=== PATIENT | male | born 1965 | race American Indian/Alaskan Native ===

== ENCOUNTER 2016-11-07 08:22 | Emergency (ER) | payer SELFPAY ==
[2016-11-07 09:13] LABS: Basophils % (Auto) 0.7 % (0.0-1.8); Eosinophils % (Auto) 3.7 % (0.0-4.3); Hemoglobin 15.4 gm/dl (11.8-15.2); Mean Corpuscular HGB Conc 33 % (32-34); Mean Corpuscular Hemoglobin 30 pg (28-32); Mean Corpuscular Volume 90 fl (84-94); Platelet Count 246 K/mm3 (140-440); Red Blood Count 5.21 M/mm3 (3.65-5.03); Red Cell Distribution Width 14.2 % (13.2-15.2); White Blood Count 8.3 K/mm3 (4.5-11.0)
[2016-11-07 09:29] LABS: Alanine Aminotransferase 26 units/L (7-56); Albumin 4.3 g/dL (3.9-5); Albumin/Globulin Ratio 1.8 %; Alkaline Phosphatase 84 units/L (35-129); Anion Gap 15 mmol/L; Bilirubin,Total 0.3 mg/dL (0.1-1.2); Blood Urea Nitrogen 18 mg/dL (9-20); Calcium 9.2 mg/dL (8.4-10.2); Carbon Dioxide 27 mmol/L (22-30); Chloride 103.5 mmol/L (98-107); Glucose 120 mg/dL (75-100); Lipase 82 units/L (13-60); Potassium 3.8 mmol/L (3.6-5.0); Sodium 142 mmol/L (137-145); Total Protein 6.7 g/dL (6.3-8.2)
[2016-11-07 09:36] LABS: Bilirubin,Urine NEG (Negative); Blood,Urine NEG (Negative); Ketones,Urine NEG (Negative); Leukocyte Esterase,Urine NEG (Negative); Mucus,Urine FEW /HPF; Nitrite,Urine NEG (Negative); Urobilinogen,Urine < 2.0 mg/dL (<2.0)
--- NOTE | 2016-11-07 13:50 | Emergency Department Report ---
ED General Adult HPI - General Chief complaint: Abdominal Pain Stated complaint: ABD PAIN Time Seen by Provider: 11/07/16 13:34 Source: patient Mode of arrival: Ambulatory Limitations: No Limitations - History of Present Illness Initial comments: Patient has a variety of nonacute problems. He has no primary care provider. He states that he has been occasionally coughing out a minimal amount of blood for the last 4 months. The patient tells me he "smokes but not cigarettes". He has not gone to a primary care provider. He states that he spit up some blood yesterday but thought it was from the stomach. He is not complaining of abdominal pain or chest pain at this time. He has not had any significant pain. He is resting comfortably and largely texturing on his phone. He is also concerned about an apparent mass in his right upper clavicular area which has been there for months if not years. -: month(s) Severity scale (0 -10): 0 Consistency: now resolved Improves with: none Worsens with: none Associated Symptoms: denies other symptoms Treatments Prior to Arrival: none - Related Data Home Medications Medication Instructions Recorded Confirmed Last Taken Lisinopril/Hydrochlorothiazide 1 tab PO QDAY 12/19/13 11/07/16 12/19/13 06:20 [Zestoretic 20-25 mg] 20 Previous Rx's Medication Instructions Recorded Last Taken Type Lansoprazole [Prevacid] 15 mg PO BID #30 cap 11/07/16 Unknown Rx Lisinopril/Hydrochlorothiazide 1 tab PO QDAY #30 tablet 11/07/16 Unknown Rx [Zestoretic 10-12.5 mg] Ondansetron [Zofran Odt] 4 mg PO Q6H PRN #7 tab.rapdis 11/07/16 Unknown Rx Allergies Allergy/AdvReac Type Severity Reaction Status Date / Time No Known Allergies Allergy Verified 07/11/14 22:11 ED Review of Systems ROS: Stated complaint: ABD PAIN Other details as noted in HPI Constitutional: denies: chills, fever Eyes: denies: eye pain, eye discharge, vision change ENT: denies: ear pain, throat pain Respiratory: see HPI. denies: cough, shortness of breath, wheezing Cardiovascular: denies: chest pain, palpitations Endocrine: no symptoms reported Gastrointestinal: as per HPI. denies: abdominal pain, nausea, diarrhea Genitourinary: denies: urgency, dysuria Musculoskeletal: denies: back pain, joint swelling, arthralgia Skin: denies: rash, lesions Neurological: denies: headache, weakness, paresthesias Psychiatric: denies: anxiety, depression Hematological/Lymphatic: denies: easy bleeding, easy bruising ED Past Medical Hx - Past Medical History Previous Medical History?: Yes Hx Hypertension: Yes (not taking any medications) - Surgical History Past Surgical History?: No - Social History Smoking Status: Never Smoker Substance Use Type: Alcohol, Marijuana - Medications Home Medications: Home Medications Medication Instructions Recorded Confirmed Last Taken Type Lisinopril/Hydrochlorothiazide 1 tab PO QDAY 12/19/13 11/07/16 12/19/13 06:20 History [Zestoretic 20-25 mg] 20 Lansoprazole [Prevacid] 15 mg PO BID #30 cap 11/07/16 Unknown Rx Lisinopril/Hydrochlorothiazide 1 tab PO QDAY #30 tablet 11/07/16 Unknown Rx [Zestoretic 10-12.5 mg] Ondansetron [Zofran Odt] 4 mg PO Q6H PRN #7 tab.rapdis 11/07/16 Unknown Rx ED Physical Exam - General Limitations: No Limitations General appearance: alert, in no apparent distress - Head Head exam: Present: atraumatic, normocephalic - Eye Eye exam: Present: normal appearance, PERRL, EOMI. Absent: scleral icterus - ENT ENT exam: Present: mucous membranes moist - Neck Neck exam: Present: normal inspection - Respiratory Respiratory exam: Present: normal lung sounds bilaterally. Absent: respiratory distress - Cardiovascular Cardiovascular Exam: Present: regular rate, normal rhythm. Absent: systolic murmur, diastolic murmur, rubs, gallop - GI/Abdominal GI/Abdominal exam: Present: soft, normal bowel sounds. Absent: distended, tenderness, guarding, rebound, rigid - Rectal Rectal exam: Present: deferred - Extremities Exam Extremities exam: Present: normal inspection. Absent: tenderness, joint swelling, calf tenderness - Back Exam Back exam: Present: normal inspection - Neurological Exam Neurological exam: Present: alert, oriented X3, CN II-XII intact. Absent: motor sensory deficit - Psychiatric Psychiatric exam: Present: normal affect, normal mood - Skin Skin exam: Present: warm, dry, intact, normal color, other (patient has a subcutaneous apparent Fany in the right supraclavicular area. It is probably about 6-10 cm in diameter ). Absent: rash ED Course Vital Signs 11/07/16 11/07/16 11/07/16 08:42 12:51 12:56 Temperature 97.9 F 98 F Pulse Rate 73 68 Respiratory 18 18 18 Rate Blood Pressure 153/113 Blood Pressure 146/104 [Left] O2 Sat by Pulse 99 98 98 Oximetry ED Medical Decision Making - Lab Data Result diagrams: 11/07/16 08:55 11/07/16 08:55 Laboratory Results - last 24 hr 11/07/16 11/07/16 11/07/16 08:55 08:55 09:20 WBC 8.3 RBC 5.21 H Hgb 15.4 H Hct 47.0 H MCV 90 MCH 30 MCHC 33 RDW 14.2 Plt Count 246 Lymph % (Auto) 36.2 H Pike % (Auto) 6.1 Eos % (Auto) 3.7 Baso % (Auto) 0.7 Lymph # 3.0 Pike # 0.5 Eos # 0.3 Baso # 0.1 Seg Neutrophils % 53.3 Seg Neutrophils # 4.4 Sodium 142 Potassium 3.8 Chloride 103.5 Carbon Dioxide 27 Anion Gap 15 BUN 18 Creatinine 1.2 Estimated GFR > 60 BUN/Creatinine Ratio 15.00 Glucose 120 H Calcium 9.2 Total Bilirubin 0.3 AST 22 ALT 26 Alkaline Phosphatase 84 Total Protein 6.7 Albumin 4.3 Albumin/Globulin Ratio 1.8 Lipase 82 H Urine Color Yellow Urine Turbidity Clear Urine pH 5.0 Ur Specific [place] 1.019 Urine Protein 100 mg/dl Urine Glucose (UA) Neg Urine Ketones Neg Urine Blood Neg Urine Nitrite Neg Urine Bilirubin Neg Urine Urobilinogen < 2.0 Ur Leukocyte Esterase Neg Urine WBC (Auto) 1.0 Urine RBC (Auto) 2.0 Urine Mucus Few - Radiology Data Radiology results: report reviewed interpreted by me: Chest x-ray no acute process. Critical care attestation.: If time is entered above; I have spent that time in minutes in the direct care of this critically ill patient, excluding procedure time. ED Disposition Clinical Impression: Gastritis Qualifiers: Gastritis type: unspecified gastritis Chronicity: acute Gastritis bleeding: with bleeding Qualified Code(s): K29.01 - Acute gastritis with bleeding Hypertension Qualifiers: Hypertension type: essential hypertension Qualified Code(s): I10 - Essential ( primary) hypertension Disposition: DISCHARGED TO HOME OR SELFCARE Is pt being admited?: No Does the pt Need Aspirin: No Condition: Stable Instructions: Hypertension (ED), Acute Hemoptysis (ED), Gastritis (ED) Additional Instructions: Return any acute change or problem. You have several complaints and hypertension that require follow-up. I've given you some referrals. Rx as directed. Prescriptions: Lansoprazole [Prevacid] 15 mg PO BID #30 cap Lisinopril/Hydrochlorothiazide [Zestoretic 10-12.5 mg] 1 tab PO QDAY #30 tablet Ondansetron [Zofran Odt] 4 mg PO Q6H PRN #7 tab.rapdis PRN Reason: nausea Referrals: PRIMARY CARE, [Primary Care Provider] - 3-5 Days Time of Disposition: 15:52
--- NOTE | 2016-11-07 14:35 | XRay Report ---
CHEST 2 VIEWS INDICATION: Hemoptysis. COMPARISON: 07/11/2014. FINDINGS: PA and lateral chest radiographs demonstrates slight exaggerated cardiomediastinal silhouette. Clear lungs. Intact bones. CONCLUSION: No acute disease in the chest. Thank you for the opportunity to participate in this patient's care.
[2016-11-07 16:33] VITALS: BP 149/104
== END 2016-11-07 16:36 | disposition home or self-care (01) ==
LOC: ED 08:22
DX: K29.01 Acute gastritis with bleeding (principal); I10 Essential (primary) hypertension; F12.10 Cannabis abuse, uncomplicated
CPT/HCPCS: 36415; 71020; 80053; 81001; 83690; 85025; 99283

== ENCOUNTER 2020-03-04 08:32 | Emergency (ER) | payer SELFPAY ==
[2020-03-04] MEDS ORDERED: ACETAMINOPHEN 325 MG TAB PO ONE (09:18)
[2020-03-04] MEDS ORDERED: ONDANSETRON 4 MG/2 ML INJ IV ONE (09:18)
[2020-03-04] MEDS ORDERED: LACTATED RINGERS 1,000 ML IV ONE (09:18)
--- NOTE | 2020-03-04 09:20 | Event Note ---
Date: 03/04/20 Medical screening examination: 54-year-old gentleman presenting with generalized malaise, fatigue, nausea after possible COVID exposure. Currently afebrile with reassuring vital signs, speaking in full sentences, and in no acute distress. Placed on isolation, treat supportively, symptomatically, obtain x-ray of the chest, EKG, appropriate laboratory studies, and reassess Vital Signs 03/04/20 08:37 Temperature 98.1 F Pulse Rate 75 Respiratory 18 Rate Blood Pressure 154/106 O2 Sat by Pulse 99 Oximetry
[2020-03-04 09:44] LABS: Basophils # (Auto) 0.1 K/mm3 (0.0-0.1); Basophils % (Auto) 0.7 % (0.0-1.8); Eosinophils # (Auto) 0.1 K/mm3 (0.0-0.4); Eosinophils % (Auto) 1.1 % (0.0-4.3); Hematocrit 48.6 % (35.5-45.6); Hemoglobin 16.4 gm/dl (11.8-15.2); Lymphocytes # (Auto) 2.3 K/mm3 (1.2-5.4); Lymphocytes % (Auto) 19.5 % (13.4-35.0); Mean Corpuscular HGB Conc 34 % (32-34); Mean Corpuscular Volume 90 fl (84-94); Monocytes # (Auto) 0.7 K/mm3 (0.0-0.8); Monocytes % (Auto) 5.6 % (0.0-7.3); Platelet Count 293 K/mm3 (140-440); Red Blood Count 5.38 M/mm3 (3.65-5.03)
--- NOTE | 2020-03-04 09:45 | XRay Report ---
CHEST 1 VIEW 03/04/2020 8:36 AM INDICATION / CLINICAL INFORMATION: Nausea, vomiting, weakness. COMPARISON: Chest x-ray on 11/07/2016 FINDINGS: SUPPORT DEVICES: None. HEART / MEDIASTINUM: No significant abnormality. LUNGS / PLEURA: No significant pulmonary or pleural abnormality. No pneumothorax. ADDITIONAL FINDINGS: No significant additional findings. IMPRESSION: 1. No acute findings. Signer Name: Rush Hernandez MD Signed: 03/04/2020 9:41 AM Workstation Name: [id number]
[2020-03-04 10:06] LABS: Albumin 4.7 g/dL (3.9-5)
[2020-03-04 10:08] LABS: INR 0.99 (0.87-1.13)
[2020-03-04] MEDS ORDERED: MECLIZINE 25 MG TAB PO ONE (10:47)
--- NOTE | 2020-03-04 10:55 | Emergency Department Report ---
ED Dizziness HPI - General Chief Complaint: Dizziness Stated Complaint: DIZZY,N/V Time Seen by Provider: 03/04/20 10:03 Source: patient, family Mode of arrival: Wheelchair Limitations: No Limitations - History of Present Illness Initial Comments: 54-year-old male, history of hypertension, presents to ED with complaint of dizziness since yesterday. Patient reports he awoke yesterday morning, got out of bed and went to the bathroom. Patient states there he began experiencing the room spinning with associated nausea and vomiting. Patient reports same dizziness and nausea since. Patient states symptoms are better when he is lying down with his eyes closed. Symptoms are worse if he turns his head to the side. Patient denies headache, blurred vision. He denies fever, diarrhea, cough, shortness of breath, body aches. Patient states he was tested for COVID because his son had a possible exposure. Patient states both he and his son tested ne gative for COVID. MD Complaint: dizziness -: days(s) (2) Timing: awoke with symptoms Description: "room spinning" History of Same: No History of Trauma: No Severity: moderate Improves With: remaining still Worsens With: movement Associated Symptoms: denies: chest pain, cough, diaphoresis, fever/chills, shortness of breath - Related Data Home Medications Medication Instructions Recorded Confirmed Last Taken Lisinopril/Hydrochlorothiazide 1 tab PO QDAY 12/19/13 11/07/16 12/19/13 06:20 [Zestoretic 20-25 mg] 20 Previous Rx's Medication Instructions Recorded Last Taken Type Lansoprazole [Prevacid] 15 mg PO BID #30 cap 11/07/16 Unknown Rx Lisinopril/Hydrochlorothiazide 1 tab PO QDAY #30 tablet 11/07/16 Unknown Rx [Zestoretic 10-12.5 mg] Ondansetron [Zofran Odt] 4 mg PO Q6H PRN #7 tab.rapdis 11/07/16 Unknown Rx Meclizine [Antivert] 25 mg PO TID PRN #20 tablet 03/04/20 Unknown Rx Allergies Allergy/AdvReac Type Severity Reaction Status Date / Time No Known Allergies Allergy Verified 07/11/14 22:11 ED Review of Systems ROS: Stated complaint: DIZZY,N/V Other details as noted in HPI Comment: All other systems reviewed and negative Constitutional: denies: chills, fever Eyes: denies: vision change Respiratory: denies: cough, shortness of breath Cardiovascular: denies: chest pain Gastrointestinal: nausea, vomiting Neurological: vertigo. denies: headache ED Past Medical Hx - Past Medical History Previous Medical History?: Yes Hx Hypertension: Yes - Surgical History Past Surgical History?: No - Social History Smoking Status: Former Smoker Substance Use Type: Alcohol, Marijuana - Medications Home Medications: Home Medications Medication Instructions Recorded Confirmed Last Taken Type Lisinopril/Hydrochlorothiazide 1 tab PO QDAY 12/19/13 11/07/16 12/19/13 06:20 History [Zestoretic 20-25 mg] 20 Lansoprazole [Prevacid] 15 mg PO BID #30 cap 11/07/16 Unknown Rx Lisinopril/Hydrochlorothiazide 1 tab PO QDAY #30 tablet 11/07/16 Unknown Rx [Zestoretic 10-12.5 mg] Ondansetron [Zofran Odt] 4 mg PO Q6H PRN #7 tab.rapdis 11/07/16 Unknown Rx Meclizine [Antivert] 25 mg PO TID PRN #20 tablet 03/04/20 Unknown Rx ED Physical Exam - General Limitations: No Limitations General appearance: alert, in no apparent distress - Head Head exam: Present: atraumatic, normocephalic - Eye Eye exam: Present: normal appearance, EOMI - ENT ENT exam: Present: mucous membranes moist - Neck Neck exam: Present: normal inspection - Respiratory Respiratory exam: Present: normal lung sounds bilaterally. Absent: respiratory distress - Cardiovascular Cardiovascular Exam: Present: regular rate, normal rhythm - GI/Abdominal GI/Abdominal exam: Present: soft. Absent: distended, tenderness - Extremities Exam Extremities exam: Present: normal inspection - Neurological Exam Neurological exam: Present: alert, oriented X3, CN II-XII intact, other ([id number] normal). Absent: motor sensory deficit - Psychiatric Psychiatric exam: Present: normal affect, normal mood - Skin Skin exam: Present: warm, dry, intact, normal color ED Course Vital Signs 03/04/20 03/04/20 03/04/20 08:36 08:37 09:30 Temperature 98.1 F 98.1 F Pulse Rate 71 75 67 Respiratory 18 18 12 Rate Blood Pressure 154/106 154/106 167/107 Blood Pressure [Right] O2 Sat by Pulse 100 99 100 Oximetry 03/04/20 03/04/20 03/04/20 09:33 09:46 10:00 Temperature Pulse Rate 55 L 63 Respiratory 18 22 20 Rate Blood Pressure 167/107 158/107 Blood Pressure [Right] O2 Sat by Pulse 97 100 Oximetry 03/04/20 03/04/20 03/04/20 10:16 10:27 10:30 Temperature Pulse Rate 60 75 Respiratory 20 18 18 Rate Blood Pressure 158/107 158/107 Blood Pressure [Right] O2 Sat by Pulse 99 99 Oximetry 03/04/20 03/04/20 03/04/20 10:46 11:00 13:38 Temperature Pulse Rate 58 L 59 L 62 Respiratory 21 22 18 Rate Blood Pressure 158/107 143/100 Blood Pressure 142/98 [Right] O2 Sat by Pulse 98 97 96 Oximetry ED Medical Decision Making - Lab Data Result diagrams: 03/04/20 09:14 03/04/20 09:14 - EKG Data -: EKG Interpreted by Me EKG shows normal: sinus rhythm, axis, intervals, QRS complexes, ST-T waves Rate: normal - EKG Data Interpretation: no acute changes - Radiology Data Radiology results: report reviewed, image reviewed - Medical Decision Making 54-year-old male with vertigo. Patient reports he awoke with symptoms yesterday morning. He feels as if the room is spinning, with associated nausea and vomiting present. Patient states symptoms are better if he is lying completely still, worse with movement of his head. CT head negative for any acute findings. Patient reports symptoms have improved following meclizine administration. Will discharge home at this time. Outpatient follow-up with neurology and ENT advised. Return precautions given. - Differential Diagnosis BPV, intracranial abnormality, dehydration Critical care attestation.: If time is entered above; I have spent that time in minutes in the direct care of this critically ill patient, excluding procedure time. ED Disposition Clinical Impression: Vertigo, benign positional Disposition: DC-01 TO HOME OR SELFCARE Is pt being admited?: No Condition: Stable Instructions: Vertigo (ED) Prescriptions: Meclizine [Antivert] 25 mg PO TID PRN #20 tablet PRN Reason: Vertigo Referrals: PRIMARY CARE, [Primary Care Provider] - 3-5 Days ANABEL MATHIAS MD [Referring] - 3-5 Days SEEMA MAR MD [Referring] - 3-5 Days Forms: Work/School Release Form(ED) Time of Disposition: 13:04
--- NOTE | 2020-03-04 11:48 | Cat Scan Report ---
CT head/brain wo con INDICATION: Dizziness. TECHNIQUE: Routine CT head without contrast. All CT scans at this location are performed using CT dos e reduction for ALARA by means of automated exposure control. COMPARISON: None. FINDINGS: BRAIN / INTRACRANIAL CONTENTS: No acute hemorrhage, mass effect, midline shift, or hydrocephalus. No appreciable acute large territorial or lacunar infarct. No chronic infarct or focal atrophy. Normal b rain volume and ventricular/sulcal size for age. ORBITS: No significant abnormality of visualized orbits. SINUSES / MASTOIDS: No significant abnormality of visualized sinuses and mastoid air cells. ADDITIONAL FINDINGS: None. IMPRESSION: 1. No acute intracranial abnormality. Signer Name: Rush Hernandez MD Signed: 03/04/2020 11:44 AM Workstation Name: [id number]
[2020-03-04 13:40] VITALS: BP 142/98
== END 2020-03-04 13:38 | disposition home or self-care (01) ==
LOC: ED 08:32
DX: R42 Dizziness and giddiness (principal); I10 Essential (primary) hypertension; F12.10 Cannabis abuse, uncomplicated; Z87.891 Personal history of nicotine dependence
CPT/HCPCS: 36415; 70450; 71045; 80053; 82550; 83735; 85025; 85610; 93005; 96361; 96374; 99285; J2405; J7120

== ENCOUNTER 2021-04-06 10:14 | Emergency (ER) | payer SELFPAY ==
[2021-04-06] MEDS ORDERED: BENZONATATE 100 MG CAP PO ONE (11:02)
[2021-04-06] MEDS ORDERED: ONDANSETRON 4 MG/2 ML INJ IV ONE (11:02)
[2021-04-06] MEDS ORDERED: SODIUM CHLORIDE 0.9% 1000 ML 1,000 ML IV ONE ×2 (11:02→12:20)
[2021-04-06] MEDS ORDERED: ACETAMINOPHEN 500 MG TAB PO ONE (11:02)
--- NOTE | 2021-04-06 11:07 | Emergency Department Report ---
ED Shortness of Breath HPI - General Chief Complaint: Dyspnea/Respdistress Stated Complaint: COVID+ AMALIA Time Seen by Provider: 04/06/21 10:32 Source: patient Mode of arrival: Ambulatory Limitations: No Limitations - History of Present Illness Initial Comments: 55-year-old male with a past medical history of hypertension presents to the hospital complaining of shortness of breath, cough, abdominal pain, headache, generalized body aches, coughing, and recent nausea, vomiting, and diarrhea. Moderate body pain reported. GI symptoms of nausea, vomiting, and diarrhea seem to be improving although abdomen heating fixture tender with palpation. Patient tested positive for COVID-19 days ago. He is unvaccinated for Covid. - Related Data Home Medications Medication Instructions Recorded Confirmed Last Taken Lisinopril/Hydrochlorothiazide 1 tab PO QDAY 12/19/13 11/07/16 12/19/13 06:20 [Zestoretic 20-25 mg] 20 Previous Rx's Medication Instructions Recorded Last Taken Type Lansoprazole [Prevacid] 15 mg PO BID #30 cap 11/07/16 Unknown Rx Lisinopril/Hydrochlorothiazide 1 tab PO QDAY #30 tablet 11/07/16 Unknown Rx [Zestoretic 10-12.5 mg] Ondansetron [Zofran Odt] 4 mg PO Q6H PRN #7 tab.rapdis 11/07/16 Unknown Rx Meclizine [Antivert] 25 mg PO TID PRN #20 tablet 03/04/20 Unknown Rx Acetaminophen [Acetaminophen 8 650 mg PO Q8HR PRN #20 tablet.er 04/06/21 Unknown Rx Hour] Albuterol Sulfate [Proventil Hfa] 6.7 gm IH Q4HR PRN #1 hfa.aer.ad 04/06/21 Unknown Rx Benzonatate [Tessalon Perles] 100 mg PO Q8HR PRN #30 capsule 04/06/21 Unknown Rx Ondansetron [Zofran Odt] 4 mg PO Q8HR PRN #20 tab.rapdis 04/06/21 Unknown Rx levoFLOXacin [Levaquin] 750 mg PO QDAY #5 tablet 04/06/21 Unknown Rx Allergies Allergy/AdvReac Type Severity Reaction Status Date / Time azithromycin [From Zithromax] Allergy Unknown Verified 04/06/21 10:41 ED Review of Systems ROS: Stated complaint: COVID+ AMALIA Other details as noted in HPI Comment: All other systems reviewed and negative ED Past Medical Hx - Past Medical History Hx Hypertension: Yes - Social History Smoking Status: Former Smoker Substance Use Type: Alcohol, Marijuana - Medications Home Medications: Home Medications Medication Instructions Recorded Confirmed Last Taken Type Lisinopril/Hydrochlorothiazide 1 tab PO QDAY 12/19/13 11/07/16 12/19/13 06:20 History [Zestoretic 20-25 mg] 20 Lansoprazole [Prevacid] 15 mg PO BID #30 cap 11/07/16 Unknown Rx Lisinopril/Hydrochlorothiazide 1 tab PO QDAY #30 tablet 11/07/16 Unknown Rx [Zestoretic 10-12.5 mg] Ondansetron [Zofran Odt] 4 mg PO Q6H PRN #7 tab.rapdis 11/07/16 Unknown Rx Meclizine [Antivert] 25 mg PO TID PRN #20 tablet 03/04/20 Unknown Rx Acetaminophen [Acetaminophen 8 650 mg PO Q8HR PRN #20 tablet.er 04/06/21 Unknown Rx Hour] Albuterol Sulfate [Proventil Hfa] 6.7 gm IH Q4HR PRN #1 hfa.aer.ad 04/06/21 Unknown Rx Benzonatate [Tessalon Perles] 100 mg PO Q8HR PRN #30 capsule 04/06/21 Unknown Rx Ondansetron [Zofran Odt] 4 mg PO Q8HR PRN #20 tab.rapdis 04/06/21 Unknown Rx levoFLOXacin [Levaquin] 750 mg PO QDAY #5 tablet 04/06/21 Unknown Rx ED Physical Exam - General Limitations: No Limitations - Other Other exam information: General: No acute distress Head: Atraumatic Eyes: normal appearance ENT: Moist mucous membranes Neck: Normal appearance, no midline tenderness Chest: Clear to auscultation bilaterally, frequent cough CV: Regular rate and rhythm Abdomen: Soft, normal bowel sounds, generalized abdominal tender, nondistended, no rebound or guarding Back: Normal inspection Extremity: Normal inspection, full range of motion Neuro: Alert O x 3, no facial asymmetry, speech clear, no gross motor sensory deficit Psych: Appropriate behavior Skin: No rash ED Course Vital Signs 04/06/21 04/06/21 04/06/21 10:46 11:36 11:46 Temperature 98.3 F Pulse Rate 77 89 Respiratory 22 22 20 Rate Blood Pressure 134/102 Blood Pressure 155/102 [Right] O2 Sat by Pulse 99 99 99 Oximetry 04/06/21 04/06/21 04/06/21 11:55 12:00 12:05 Temperature Pulse Rate 83 Respiratory 18 15 20 Rate Blood Pressure 131/98 Blood Pressure [Right] O2 Sat by Pulse 99 98 Oximetry 04/06/21 04/06/21 04/06/21 12:16 12:30 12:46 Temperature Pulse Rate 91 H 82 80 Respiratory 24 27 H 26 H Rate Blood Pressure 145/103 153/105 146/98 Blood Pressure [Right] O2 Sat by Pulse 98 99 100 Oximetry 04/06/21 04/06/21 04/06/21 13:00 13:16 13:30 Temperature Pulse Rate 88 77 82 Respiratory 18 12 15 Rate Blood Pressure 146/98 140/102 149/97 Blood Pressure [Right] O2 Sat by Pulse 99 100 Oximetry 04/06/21 04/06/21 04/06/21 13:46 14:00 14:16 Temperature Pulse Rate 72 73 87 Respiratory 26 H 26 H 18 Rate Blood Pressure 160/103 142/97 142/97 Blood Pressure [Right] O2 Sat by Pulse 98 99 Oximetry 04/06/21 04/06/21 04/06/21 14:30 14:46 15:00 Temperature Pulse Rate 81 82 78 Respiratory 16 14 15 Rate Blood Pressure 142/97 142/97 142/97 Blood Pressure [Right] O2 Sat by Pulse 99 98 98 Oximetry 04/06/21 04/06/21 04/06/21 15:16 15:30 15:46 Temperature Pulse Rate 78 82 80 Respiratory 14 17 13 Rate Blood Pressure 142/97 142/97 142/97 Blood Pressure [Right] O2 Sat by Pulse 99 98 98 Oximetry - Reevaluation(s) Reevaluation #1: 04/06/21 15:27 Patient did ambulate without the department with a saturation of 97% as per report from nurse. See nurses note ED Medical Decision Making - Lab Data Result diagrams: 04/06/21 11:04 04/06/21 11:04 Lab Results 04/06/21 04/06/21 Range/Units 11:04 11:04 WBC 10.0 (4.5-11.0) K/mm3 RBC 5.65 H (3.65-5.03) M/mm3 Hgb 17.6 H (11.8-15.2) gm/dl Hct 51.5 H (35.5-45.6) % MCV 91 (84-94) fl MCH 31 (28-32) pg MCHC 34 (32-34) % RDW 13.4 (13.2-15.2) % Plt Count 354 (140-440) K/mm3 Lymph % (Auto) 14.4 (13.4-35.0) % [place] % (Auto) 12.3 H (0.0-7.3) % Eos % (Auto) 0.3 (0.0-4.3) % Baso % (Auto) 0.2 (0.0-1.8) % Lymph # (Auto) 1.4 (1.2-5.4) K/mm3 [place] # (Auto) 1.2 H (0.0-0.8) K/mm3 Eos # (Auto) 0.0 (0.0-0.4) K/mm3 Baso # (Auto) 0.0 (0.0-0.1) K/mm3 Seg Neutrophils % 72.8 H (40.0-70.0) % Seg Neutrophils # 7.3 (1.8-7.7) K/mm3 Sodium 135 L (137-145) mmol/L Potassium 4.1 (3.6-5.0) mmol/L Chloride 94.4 L (98-107) mmol/L Carbon Dioxide 22 (22-30) mmol/L Anion Gap 23 mmol/L BUN 35 H (9-20) mg/dL Creatinine 1.4 H (0.8-1.3) mg/dL Estimated GFR > 60 ml/min BUN/Creatinine Ratio 25 % Glucose 109 H (75-100) mg/dL Calcium 9.9 (8.4-10.2) mg/dL Total Bilirubin 1.20 (0.1-1.2) mg/dL AST 50 H (5-40) units/L ALT 57 H (7-56) units/L Alkaline Phosphatase 144 H (35-129) units/L Total Protein 8.0 (6.3-8.2) g/dL Albumin 3.9 (3.9-5) g/dL Albumin/Globulin Ratio 1.0 % - Radiology Data Radiology results: report reviewed CHEST 1 VIEW 04/06/2021 10:23 AM INDICATION / CLINICAL INFORMATION: Cough and shortness of breath. COMPARISON: Chest x-ray on 03/04/2020 FINDINGS: SUPPORT DEVICES: None. HEART / MEDIASTINUM: No significant abnormality. LUNGS / PLEURA: No significant pulmonary or pleural abnormality. No pneumothorax. ADDITIONAL FINDINGS: No significant additional findings. IMPRESSION: 1. No acute findings. CT ABDOMEN AND PELVIS WITH CONTRAST INDICATION / CLINICAL INFORMATION: ABDOMINAL PAIN, N,V,D,COVID+ OMNI 300 100 ML. TECHNIQUE: Axial CT images were obtained through the abdomen and pelvis after 100 mL's of Omnipaque [address] scans at this location are performed using CT dose reduction for ALARA by means of automated exposure control. COMPARISON: None available. FINDINGS: LOWER CHEST: Scattered groundglass opacities in bilateral lung bases. AORTA / ARTERIES: Mild atherosclerotic calcification without acute abnormality. IVC / VEINS: No significant abnormality. LYMPH NODES: No significant adenopathy. COLON: No significant abnormality. APPENDIX: No significant abnormality. STOMACH / SMALL BOWEL: No significant abnormality. PERITONEUM: No free fluid. No free air No fluid collection. LIVER: No significant abnormality. GALLBLADDER: No significant abnormality. BILE DUCTS: No significant abnormality. PANCREAS: No significant abnormality. SPLEEN: No significant abnormality. ADRENALS: No significant abnormality. RIGHT KIDNEY / URETER: Atrophic appearance to the right kidney of unknown etiology; however, this appearance is likely secondary to renal scarring from prior infection. There is a punctate calcif ication in the region of the right distal ureterovesicular junction, which may represent small stone. No hydronephrosis. LEFT KIDNEY / URETER: No significant abnormality. URINARY BLADDER: No significant abnormality. REPRODUCTIVE ORGANS: No significant abnormality. SKELETAL SYSTEM: No significant abnormality. ADDITIONAL FINDINGS: None. IMPRESSION: 1. Scattered groundglass opacities in bilateral lung bases which can be seen with Covid pneumonia. 2. Atrophic appearance of the right kidney of unknown etiology; however, this has an appearance similar to chronic scarring from prior infections. 3. There is a punctate calcification noted in the region of the right distal ureterovesicular junction which may represent a ureteral stone. There is no hydronephrosis. - Medical Decision Making 55-year-old male presents to the hospital with recent Covid positive test resu lts and symptoms of Covid infection. Patient has respiratory and GI symptoms. Findings suggestive of Covid pneumonia without hypoxia at rest or ambulation. Labs reveal mild elevation LFTs and mild renal insufficiency secondary to dehydration. CT abdomen and pelvis findings noted. Patient feels somewhat better with ED treatment. Patient treated with 2 L of IV normal saline for dehydration/mild renal insufficiency. Now able to ambulate and complete walk test after IV hydration. Patient also treated with Tylenol, Tessalon Perles, and p.o. Levaquin. Critical Care Time: No Critical care attestation.: If time is entered above; I have spent that time in minutes in the direct care of this critically ill patient, excluding procedure time. ED Disposition Clinical Impression: Pneumonia due to COVID-19 virus, Gastroenteritis, Dehydration Disposition: HOME / SELF CARE / HOMELESS Is pt being admited?: No Does the pt Need Aspirin: No Condition: Stable Instructions: COVID-19, Bacterial Pneumonia (ED) Additional Instructions: Take the medication as prescribed. Follow-up with your doctor or doctor/clinic provided. Return if symptoms worsen as indicated by your discharge instructions. Make sure you purchase a pulse oximetry as discussed to monitor your oxygen saturation via your finger. Return to the ER if your oxygen saturation drops below 93% at rest or with ambulation Prescriptions: Acetaminophen [Acetaminophen 8 Hour] 650 mg PO Q8HR PRN #20 tablet.er PRN Reason: Pain , Severe (7-10) levoFLOXacin [Levaquin] 750 mg PO QDAY #5 tablet Albuterol Sulfate [Proventil Hfa] 6.7 gm IH Q4HR PRN #1 hfa.aer.ad PRN Reason: Wheezing Benzonatate [Tessalon Perles] 100 mg PO Q8HR PRN #30 capsule PRN Reason: Cough Ondansetron [Zofran Odt] 4 mg PO Q8HR PRN #20 tab.rapdis PRN Reason: Nausea And Vomiting Referrals: PRIMARY CARE, [Primary Care Provider] - 3-5 Days [facility] [Provider Group] - 3-5 Days Time of Disposition: 15:28
--- NOTE | 2021-04-06 11:29 | XRay Report ---
CHEST 1 VIEW 04/06/2021 10:23 AM INDICATION / CLINICAL INFORMATION: Cough and shortness of breath. COMPARISON: Chest x-ray on 03/04/2020 FINDINGS: SUPPORT DEVICES: None. HEART / MEDIASTINUM: No significant abnormality. LUNGS / PLEURA: No significant pulmonary or pleural abnormality. No pneumothorax. ADDITIONAL FINDINGS: No significant additional findings. IMPRESSION: 1. No acute findings. Signer Name: Rush Hernandez MD Signed: 04/06/2021 11:25 AM Workstation Name: [id number]
[2021-04-06 11:45] LABS: Basophils % (Auto) 0.2 % (0.0-1.8); Eosinophils % (Auto) 0.3 % (0.0-4.3); Hematocrit 51.5 % (35.5-45.6); Hemoglobin 17.6 gm/dl (11.8-15.2); Lymphocytes # (Auto) 1.4 K/mm3 (1.2-5.4); Lymphocytes % (Auto) 14.4 % (13.4-35.0); Mean Corpuscular HGB Conc 34 % (32-34); Mean Corpuscular Volume 91 fl (84-94); Monocytes # (Auto) 1.2 K/mm3 (0.0-0.8); Monocytes % (Auto) 12.3 % (0.0-7.3); Platelet Count 354 K/mm3 (140-440); Red Blood Count 5.65 M/mm3 (3.65-5.03); Red Cell Distribution Width 13.4 % (13.2-15.2)
[2021-04-06 11:55] LABS: Alanine Aminotransferase 57 units/L (7-56); Albumin 3.9 g/dL (3.9-5); BUN/Creatinine Ratio 25; Blood Urea Nitrogen 35 mg/dL (9-20); Calcium 9.9 mg/dL (8.4-10.2); Hemolysis Index 5
--- NOTE | 2021-04-06 13:25 | Cat Scan Report ---
CT ABDOMEN AND PELVIS WITH CONTRAST INDICATION / CLINICAL INFORMATION: ABDOMINAL PAIN, N,V,D,COVID+ OMNI 300 100 ML. TECHNIQUE: Axial CT images were obtained through the abdomen and pelvis after 100 mL's of Omnipaque [address] scans at this location are performed using CT dose reduction for ALARA by gavin gomez of automated exposure control. COMPARISON: None available. FINDINGS: LOWER CHEST: Scattered groundglass opacities in bilateral lung bases. AORTA / ARTERIES: Mild atherosclerotic calcification without acute abnormality. IVC / VEINS: No significant abnormality. LYMPH NODES: No significant adenopathy. COLON: No significant abnormality. APPENDIX: No significant abnormality. STOMACH / SMALL BOWEL: No significant abnormality. PERITONEUM: No free fluid. No free air No fluid collection. LIVER: No significant abnormality. GALLBLADDER: No significant abnormality. BILE DUCTS: No significant abnormality. PANCREAS: No significant abnormality. SPLEEN: No significant abnormality. ADRENALS: No significant abnormality. RIGHT KIDNEY / URETER: Atrophic appearance to the right kidney of unknown etiology; however, this cynthia earance is likely secondary to renal scarring from prior infection. There is a punctate calcification in the region of the right distal ureterovesicular junction, which may represent small stone. No hyd ronephrosis. LEFT KIDNEY / URETER: No significant abnormality. URINARY BLADDER: No significant abnormality. REPRODUCTIVE ORGANS: No significant abnormality. SKELETAL SYSTEM: No significant abnormality. ADDITIONAL FINDINGS: None. IMPRESSION: 1. Scattered groundglass opacities in bilateral lung bases which can be seen with Covid pneumonia. 2. Atrophic appearance of the right kidney of unknown etiology; however, this has an appearance simil ar to chronic scarring from prior infections. 3. There is a punctate calcification noted in the region of the right distal ureterovesicular junctio n which may represent a ureteral stone. There is no hydronephrosis. Signer Name: Oneil Watson DO Signed: 04/06/2021 1:20 PM Workstation Name: [id number]
[2021-04-06] MEDS ORDERED: levoFLOXacin 750 MG TAB PO ONE (14:49)
[2021-04-06 15:26] VITALS: BP 142/97
== END 2021-04-06 15:51 | disposition home or self-care (01) ==
LOC: ED 10:14
DX: U07.1 COVID-19 (principal); J12.82 Pneumonia due to coronavirus disease 2019; K52.9 Noninfective gastroenteritis and colitis, unspecified; E86.0 Dehydration; I10 Essential (primary) hypertension; Z87.891 Personal history of nicotine dependence; Z88.1 Allergy status to other antibiotic agents
CPT/HCPCS: 36415; 71045; 74177; 80053; 85025; 96361; 96374; 99284; J2405; J7030; Q9967